=== PATIENT | female | born 1965 | race Caucasian/White ===

== ENCOUNTER 2022-03-25 05:23 | Emergency (ER) | payer OTHER ==
[2022-03-25] MEDS ORDERED: HYDROmorphone 1 MG/ML Syringe IM ONE (05:40)
[2022-03-25] MEDS ORDERED: Propofol 200 MG/20 ML SDV ONE (06:50)
== END 2022-03-25 07:47 | disposition home or self-care (01) ==
LOC: JP.ED 05:23
DX: S52.022A Displaced fracture of olecranon process without intraarticular extension of left ulna, initial encounter for closed fracture (principal); S42.412A Displaced simple supracondylar fracture without intercondylar fracture of left humerus, initial encounter for closed fracture; S53.105A Unspecified dislocation of left ulnohumeral joint, initial encounter; F17.210 Nicotine dependence, cigarettes, uncomplicated; W18.30XA Fall on same level, unspecified, initial encounter
CPT/HCPCS: 24600; 73070; 76000; 96372; 99283; J1170; J2704; 29105